=== PATIENT | female | born 1960 | race Caucasian/White ===

== ENCOUNTER → 2020-04-30 12:42 | Outpatient (BNVA) | payer MEDICAID, SELFPAY | PROVIDERS: PCP Internal Medicine; Referring Provider Internal Medicine; Visit Provider Nurse Practitioner Family | DX: Z01.818 Encounter for other preprocedural examination (principal); R53.83 Other fatigue; R00.2 Palpitations; Z98.0 Intestinal bypass and anastomosis status | CPT/HCPCS: 99204 ==

== ENCOUNTER 2020-09-07 17:31 | Emergency (ER) | payer MEDICAID, SELFPAY ==
--- NOTE | ~2020-09-07 | CT_ITS ---
EXAMINATION: CT FACIAL BONES WITHOUT CONTRAST CLINICAL INFORMATION: Pain. Swelling at the TMJ joint. Concern for dislocation. COMPARISON: None TECHNIQUE: Axial images obtained through the facial bones. Coronal and sagittal reformatted images are performed at CT scanner This CT examination was performed using dose optimization techniques as appropriate, variously including the following: *Automated exposure control *Adjustment of mA and/or kV according to patient size (this includes techniques or standardized protocols for targeted exams where dose is matched to indication/reason for exam; i.e. extremities or head) *Use of iterative reconstruction technique DLP: 287 mGy-cm FINDINGS: There is no acute maxillofacial fracture. The pterygoid plates are intact. The zygomatic arches are intact. The lamina papyracea are intact. The orbital rims are intact. The orbital globes and retrobulbar structures are normal. Lobular mucosal thickening in the inferior right and left maxillary sinus. Scattered mucosal thickening in the ethmoid sinuses. Lobular mucosal thickening in the posterior right sphenoid sinus. The mastoid air cells and middle ear cavities are normally aerated. No fracture or dislocation of the TMJ joints. There is mild degenerative change of the articular surface of the left mandibular condyle at the left TMJ joint with flattening of the articular surface. The right TMJ joint is normal. The imaged portions of the brain demonstrate no acute abnormality. CT/CT facial bones wo con IMPRESSION: No acute intracranial process or discrete facial bone fracture. Degenerative change of the articular condyle the left mandible at the TMJ joint.
[2020-09-07 17:58] VITALS: BP 120/66; BP 126/70; PULSE 92; RESP 18; TEMP 37.3; O2SAT 98; O2SAT 99; BMI 22.4
--- NOTE | 2020-09-07 21:13 | ED.DENTAL ---
HPI - Dental/Oral General Chief complaint: Dental/Oral Stated complaint: JAW PAIN AND SWELLING Time Seen by Provider: 09/07/20 21:13 Source: patient Mode of arrival: ambulatory History of Present Illness HPI Narrative: Three episodes of left-sided jaw pain over the past 2 and half weeks the patient has not sought medical attention for. This is not been associated with dizziness, visual disturbances, fevers, chills but patient states that she has difficulty opening her jaw because of the pain. First episode she stated lasted 20-25 minutes and occurred after awakening from sleep and was preceded by overall chest discomfort bilateral upper extremity discomfort as well as pain into bilateral aspects of her neck. Second episode occurred in the afternoon while she was drinking water and lasted ?a little bit longer?. This most recent episode started at 4:30 p.m. and is less painful not associated with any shortness of breath or chest pain but patient reports headache, denies ear pain or dental pain. Related Data Home Medications Medication Instructions Recorded Confirmed aloe vera 1 cap PO DAILY 04/27/20 06/15/20 ascorbic acid (vitamin C) [Vitamin 2,000 mg PO DAILY 04/27/20 06/15/20 C] [id number]-dtc-blkbor-om 3,6,9 5 1 cap PO DAILY 04/27/20 06/15/20 [[place] 3-6-9 Fatty Acids] multivitamin [Vitamin Daily] 5 ml PO DAILY 04/27/20 06/15/20 selenium (sodium selenate) 95 mcg PO DAILY 04/27/20 06/15/20 vitamin A 5,000 unit PO DAILY 04/27/20 06/15/20 vitamin E 400 unit PO DAILY 04/27/20 06/15/20 zinc gluconate [Zinc Natural] 100 mg PO DAILY 04/27/20 06/15/20 Previous Rx's Medication Instructions Recorded methylcellulose (laxative) 500 mg 500 mg PO DAILY #30 tab 04/30/20 tablet peg 3350-electrolytes 227.1 240 ml PO Q10M #1 ea 04/30/20 gram-21.5 gram-6.36gram oral powder packet Allergies Allergy/AdvReac Type Severity Reaction Status Date / Time codeine [CODEINE] Allergy Unknown UNKNOWN Verified 09/07/20 17:58 Penicillins [PENICILLINS] Allergy Unknown UNKNOWN Verified 09/07/20 17:58 morphine Allergy Hallucinati Verified 03/01/21 17:58 ons Review of Systems Review of Systems: Pertinent positives and negatives as stated in HPI 10 point review of systems is otherwise negative. [facility] Past Medical History Source: nursing notes reviewed Medical History Asthma Fibromyalgia GERD (gastroesophageal reflux disease) History of ovarian cyst Non Hodgkin's lymphoma Prediabetes Rheumatoid arthritis Rheumatoid arthritis in remission Screen for colon cancer Stomach cancer Surgical History H/O spinal fusion History of colon resection History of esophagogastroduodenoscopy (EGD) Status post cholecystectomy Family History Family History Father Family hx of lung cancer Mother No problems noted. Brother No problems noted. Sister History of colon cancer Daughter No problems noted. Other HTN (hypertension) Social History Social History Household Members: Friend(s) Housing: House Alcohol intake: never Smoking Status: Never smoker Advance Directives: No Advance Directives Information Provided: Yes service: No Current occupational status: disabled Physical Exam Vital Signs: Vital Signs: Last Vital Signs Temp 99.1 F 09/07/20 17:58 Pulse 92 09/07/20 17:58 Resp 18 09/07/20 17:58 BP 120/66 09/07/20 17:58 Pulse Ox 99 09/07/20 17:58 Body Mass Index 22.4 VITAL SIGNS: Reviewed. GENERAL: Well developed, well nourished, in no acute distress. HEAD: Normocephalic/atraumatic, no pain on palpation over the left temporal area, there is noted mild swelling over the left TMJ without erythema/warmth, and due to inability to open jaw exam limited EYES: PERRLA, EOMI intact without pain, no nystagmus/pallor/icterus noted EARS: Ext canals without abnormality NOSE: Nares patent bilateral OROPHARYNX: no oral lesions noted, posterior pharynx clear, limited exam due to patient's inability to open her mouth significantly NECK: Supple, no adenopathy LUNGS: Normal breath sounds. No adventitious sounds or accessory muscle use. SpO2<99> CARDIOVASCULAR: Regular rate and rhythm without noted murmurs ABDOMEN: Soft, non-tender, non-distended with bowel sounds. SKIN: Inspection of the skin reveals no rashes NEUROLOGIC: Alert and oriented x 4. Course Course Course Narrative: This is a 60-year-old female with history and clinical presentation most suggestive of either TMJ, grinding her teeth, but doubt dental pain and will rule out the likelihood giant cell arteritis as well as possible transient dislocation. Does not seem to be consistent with sialadenitis. Review of all investigations negative for acute findings and ESR -53 inconsistent with a giant cell arteritis. CT scan demonstrates degenerative changes of the articular condyle. All results and findings were discussed with patient at bedside and she was discharged in stable condition with instructions to follow-up with her primary care provider. MDM - Dental/Oral Lab Data Result diagrams: 09/07/20 21:49 09/07/20 21:49 Labs: Lab Results 09/07/20 09/07/20 09/07/20 Range/Units 21:49 21:49 21:49 WBC 7.8 (4.8-10.8) X10*3/uL RBC 4.87 (4.20-5.50) X10*6/uL Hgb 12.3 (12.0-16.0) g/dl Hct 40.1 (37-47) % MCV 82.3 (80-98) fL MCH 25.3 L (27.0-33.0) pg MCHC 30.7 L (31.0-35.0) g/dl RDW 14.2 (11.0-16.0) % Plt Count 269 (160-400) X10*3/uL MPV 10.2 (9.4-12.3) fL Immature Gran % (Auto) 0.4 (0.0-0.4) % Neut % (Auto) 69.4 (45-73) % Lymph % (Auto) 22.2 (20-40) % Pike % (Auto) 5.9 (2-11) % Eos % (Auto) 1.7 (0-4) % Baso % (Auto) 0.4 (0-2) % Lymph # (Auto) 1.7 (1.2-4.9) X10*3/uL Pike # (Auto) 0.5 (0.1-1.2) X10*3/uL Eos # (Auto) 0.1 (0.0-0.4) X10*3/uL Baso # (Auto) 0.0 (0.0-0.2) X10*3/uL Abs Immat Gran (auto) 0.03 (0.00-0.03) X10*3/uL Absolute Neuts (auto) 5.4 (2.0-8.3) X10*3/uL Absolute Nucleated RBC 0.000 (0.0-0.012) X10*3/uL Nucleated RBC % (auto) 0.0 (0.0-0.2) /100WBC ESR 53 H (0-20) MM/HR Sodium 141 (135-145) mmol/L Potassium 4.1 (3.3-5.1) mmol/L Chloride 104 (96-108) mmol/L Carbon Dioxide 28 (22-29) mmol/L Anion Gap 13 (12-20) BUN 7 L (9-16) mg/dL Creatinine 0.96 (0.5-1.4) mg/dL Estim Creat Clear Calc 57.5 Estimated GFR 60 Random Glucose 136 H (60-115) mg/dL Calcium 9.6 (8.4-10.2) mg/dL Total Bilirubin 0.5 (0.0-1.0) mg/dL AST 57 H (5-31) U/L ALT 45 H (0-31) U/L Alkaline Phosphatase 119 H (39-117) U/L Total Protein 7.7 (6.5-8.0) g/dL Albumin 4.3 (3.5-5.0) g/dL ECG Data Attestation: I personally reviewed and interpreted this ECG as follows: Prior ECG tracings: available for review (10/30/2018 no acute changes on comparison) Interpretation: Sinus rhythm, HR-72, no evidence of acute ischemia, SD/QRS/QTC are within normal limits. Discharge Plan Discharge Clinical Impression: Jaw pain Patient Disposition: Home, Self-Care Instructions: Temporomandibular Disorder (ED) Additional Instructions: Resume all home medications as prescribed. Recommend using [id number] Tylenol/ibuprofen as needed for pain control as per packaging guidelines. Please follow-up with your primary care provider by calling 1st thing in the morning. Do not hesitate to return to the emergency department should you experience any acute worsening of your symptoms. Prescriptions: No Action Vitamin Daily Liquid 5 ml PO DAILY RF: 0 zinc gluconate [Zinc Natural] 100 mg Tablet 100 mg PO DAILY RF: 0 Vitamin C 2,000 mg Tablet Extended Release 2,000 mg PO DAILY RF: 0 aloe vera Capsule 1 cap PO DAILY RF: 0 vitamin E 400 unit Capsule 400 unit PO DAILY RF: 0 vitamin A 5,000 unit/0.1 mL Drops 5,000 unit PO DAILY RF: 0 [place] 3-6-9 Fatty Acids 400-400-200 mg Capsule 1 cap PO DAILY RF: 0 selenium (sodium selenate) 95 mcg/drop Drops 95 mcg PO DAILY RF: 0 Citrucel 500 mg tablet 500 mg PO DAILY Qty: 30 RF: 2 Golytely 227.1-21.5-6.36 gram powder in packet 240 ml PO Q10M Qty: 1 RF: 0 Referrals: [facility] [Primary Care Provider] - 2 days (Re-evaluation of left jaw pain and CT scan findings showing degenerative changes of the articular condyle of the left mandible) Win Lazcano MD [Physician] - 2 days (Re-evaluation after presenting to the emergency department for jaw pain and ESR-53 not consistent with giant cell arteritis, and CT scan showing degenerative changes of the articular condyle the left mandible.)
--- NOTE | 2020-09-07 21:37 | ECG_ITS ---
Test Reason : Baseline Blood Pressure : / mmHG Vent. Rate : 072 BPM Atrial Rate : 072 BPM P-R Int : 154 ms QRS Dur : 072 ms QT Int : 362 ms P-R-T Axes : 079 062 050 degrees QTc Int : 396 ms Normal sinus rhythm Normal ECG When compared with ECG of 30-OCT-2018 12:23, No significant change was found Referred By: Trinh Jerez Electronically Signed By:ADELITA CEE
[2020-09-07 21:55] LABS: MANUAL DIFF FLAG NO
[2020-09-07 21:59] LABS: Basophils Percent Auto 0.4 % (0-2); Eosinophils Absolute Auto 0.1 X10*3/uL (0.0-0.4); Eosinophils Percent Auto 1.7 % (0-4); Hematocrit 40.1 % (37-47); Hemoglobin 12.3 g/dl (12.0-16.0); Imm Gran Abs Auto 0.03 X10*3/uL (0.00-0.03); Imm Gran Pct Auto 0.4 % (0.0-0.4); Lymphocytes Absolute Auto 1.7 X10*3/uL (1.2-4.9); Lymphocytes Percent Auto 22.2 % (20-40); Mean Corpuscular HGB Conc 30.7 g/dl (31.0-35.0); Mean Corpuscular Hemoglobin 25.3 pg (27.0-33.0); Mean Corpuscular Volume 82.3 fL (80-98); Mean Platelet Volume 10.2 fL (9.4-12.3); Monocytes Absolute Auto 0.5 X10*3/uL (0.1-1.2); Monocytes Percent Auto 5.9 % (2-11); Neutrophils Absolute Auto 5.4 X10*3/uL (2.0-8.3); Neutrophils Percent Auto 69.4 % (45-73); Platelet Count 269 X10*3/uL (160-400); Red Blood Count 4.87 X10*6/uL (4.20-5.50); Red Cell Distribution Width 14.2 % (11.0-16.0); White Blood Count 7.8 X10*3/uL (4.8-10.8)
[2020-09-07 22:21] LABS: Anion Gap 13 (12-20); Aspartate Amino Transferase 57 U/L (5-31); Bilirubin Total 0.5 mg/dL (0.0-1.0); Calcium 9.6 mg/dL (8.4-10.2); Carbon Dioxide 28 mmol/L (22-29); Chloride 104 mmol/L (96-108); Potassium 4.1 mmol/L (3.3-5.1); Sodium 141 mmol/L (135-145); Total Protein 7.7 g/dL (6.5-8.0)
[2020-09-07 22:33] LABS: Alanine Aminotransferase 45 U/L (0-31); Albumin Level 4.3 g/dL (3.5-5.0); Alkaline Phosphatase 119 U/L (39-117); Blood Urea Nitrogen 7 mg/dL (9-16); Creatinine Clr Calc Pharmacy 57.5; Estimated Glomerular Filt Rate 60; Glucose Random 136 mg/dL (60-115)
[2020-09-07 22:46] LABS: Erythrocyte Sedimentation Rate 53 MM/HR (0-20)
[2020-09-08] MEDS: Acetaminophen 325 MG TABLET 975 MG PO (00:05)
== END 2020-09-08 00:12 | disposition home or self-care (01) ==
PROVIDERS: Emergency Provider Student in an Organized Health Care Education/Training Program
DX: R68.84 Jaw pain (principal); J45.909 Unspecified asthma, uncomplicated; K21.9 Gastro-esophageal reflux disease without esophagitis; R73.03 Prediabetes; Z85.028 Personal history of other malignant neoplasm of stomach; Z90.49 Acquired absence of other specified parts of digestive tract
CPT/HCPCS: 36415; 70486; 80053; 85025; 85652; 93005; 99283; 99284

== ENCOUNTER → 2024-03-05 13:59 | Outpatient (RCR) | payer MEDICAID, SELFPAY ==
--- NOTE | 2020-04-27 13:19 | P.CNHO_ITS ---
Subjective - Subjective Chief complaint: consult for non-Hodgkin's lymphoma. 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 THERAPY: Status post resection of colon and small intestine and anastomosis. HPI - Consult Narrative Reason for consult: consult for non-Hodgkin's lymphoma. Narrative: Barbara Reyes is a pleasant 59 year old lady, who recently traveled to [place]. She tells me that in 2013 while she was in [place] she had some abdominal co mplaints, including sharp left upper quadrant. she had some nausea and constipation. Denied fever, chills or night sweats. No vomiting or urinary complaints. She was told that she has, a football sized mass behind the spleen, that was picked up on imaging studies. CT scan of abdomen pelvis 06/12/2013 showed a proximal small bowel tumor without evidence of obstruction. She underwent surgical resection: underwent resection of colon and small intestine, with anastomosis. Pathology came back positive for diffuse large B-cell lymphoma. She was seen by Dr. Hidalgo, from Oncology. who had extensive discussion with her and her daughter regarding further therapy. Chemotherapy was re commended however the patient rejected it. She was more interested in alternative treatments. She knows a cigar binder and so she followed her direction. she is actually following them even to this day. Lately she has felt more fatigued. She denies fever nor chills no night sweats. appetite is not that good. She says she has lost weight. She did notice some shortness of breath last week. She has noted some distension of the belly and it feels hard. She has been referred here for further evaluation. Review of Systems - Constitutional Reports system reviewed and no additional complaints, except as documented, Reports anorexia, Reports fatigue, Reports lack of energy, Reports weight loss, Denies fever(s) - Eyes Reports system reviewed and no additional complaints, except as documented - Cardiovascular Reports system reviewed and no additional complaints, except as documented - Respiratory Reports no additional respiratory complaints, Reports dyspnea on exertion, Denies chest congestion - Gastrointestinal Reports system reviewed and no additional complaints, except as documented, Denies loose stools - Genitourinary Reports no additional female genitourinary complaints - Musculoskeletal Reports system reviewed and no additional complaints, except as documented, Reports body aches, Reports joint pain - Integumentary/Breasts Skin/Breast: Reports no additional skin complaints - Psychiatric Reports system reviewed and no additional complaints, except as documented - Endocrine Reports no additional endocrine complaints - Hematologic/Lymphatic Reports system reviewed and no additional complaints, except as documented, Denies easy bleeding - Allergic/Immunologic Reports system reviewed and no additional complaints, except as documented [facility] Medical History: Medical History (Last Updated 04/27/20 @ 13:31 by Dandre Xavier MD) Asthma Fibromyalgia GERD (gastroesophageal reflux disease) History of ovarian cyst Non Hodgkin's lymphoma Prediabetes Rheumatoid arthritis Rheumatoid arthritis in remission Stomach cancer Patient : No Family History: Family History (Last Updated 04/27/20 @ 13:32 by Dandre Xavier MD) Other Family hx of lung cancer HTN (hypertension) Surgical History: Surgical History (Last Updated 04/27/20 @ 13:31 by Dandre Xavier MD) H/O spinal fusion Status post cholecystectomy Smoking status: Never smoker Home Medications and Allergies Home Medications Medication Instructions Recorded Confirmed Type aloe vera 1 cap PO DAILY 04/27/20 04/30/20 History ascorbic acid (vitamin C) [Vitamin 2,000 mg PO DAILY 04/27/20 04/30/20 History C] [id number]-[id number] 3,6,9 5 1 cap PO DAILY 04/27/20 04/30/20 History [[place] 3-6-9 Fatty Acids] multivitamin [Vitamin Daily] 5 ml PO DAILY 04/27/20 04/30/20 History selenium (sodium selenate) 95 mcg PO DAILY 04/27/20 04/30/20 History vitamin A 5,000 unit PO DAILY 04/27/20 04/30/20 History vitamin E 400 unit PO DAILY 04/27/20 04/30/20 History zinc gluconate [Zinc Natural] 100 mg PO DAILY 04/27/20 04/30/20 History Allergies Allergy/AdvReac Type Severity Reaction Status Date / Time codeine [CODEINE] Allergy Unknown UNKNOWN Verified 04/27/20 14:08 Penicillins [PENICILLINS] Allergy Unknown UNKNOWN Verified 04/27/20 14:08 morphine Allergy Hallucinati Verified 04/30/20 12:48 ons Physical Exam - Constitutional Present: no acute distress - Routine HEENT Exam Head: Present: normal inspection ENT: Present: mucous membranes moist - Routine Neck Exam Present: supple, full ROM - Routine Chest/Breast/Axilla Exam Breast: Present: Normal Exam - Routine Respiratory Exam Present: CTAB - Routine Cardiovascular Exam Cardiovascular: Present: RRR, S1 - Routine Abdominal Exam Present: distended, firm, soft, nontender - Routine Extremities Exam Present: normal inspection, nontender - Routine Back/Spine/Pelvis Exam Back/Spine: Present: full ROM - Routine Skin Exam Present: intact - Routine Neurological Exam Present: alert, oriented X3 - Detailed Neurological Exam: Coma Scale Eye Opening: Spontaneous (4) Motor Response: Obeys commands (6) - Routine Psychiatric Exam Present: good insight, good judgment Hem/Onc Consult Result - Labs CBC & Chem 7: 04/27/20 14:40 04/27/20 14:40 Assessment and Plan (1) NHL (non-Hodgkin's lymphoma) Status: Acute This is a pleasant 59-year-old lady who has been referred here for the history of non-Hodgkin's lymphoma. She tells me that this was diagnosed in [place] back in 2012. She had diffuse large B cell lymphoma involving the bowel. She mentions a hospital: [facility] in [place]. She has the phone number: [phone]. I wanted to review those records. I called the number and the answering machine gave me a fax number to fax the release of information. We did that. I got the records from there: CT scan of abdomen pelvis 06/12/2013 showed a proximal small bowel tumor without evidence of obstruction. She underwent surgical resection: underwent resection of colon and small intestine, with anastomosis. Pathology came back positive for diffuse large B-cell lymphoma. She was seen by Dr. Hidalgo, from Oncology. who had extensive discussion with her and her daughter regarding further therapy. Chemotherapy was recommended however the patient rejected it. She was more interested in alternative treatments. She knows a cigar binder and so she followed her direction. she is actually following them even to this day. PLAN: In the meantime I obtained baseline labs including an LDH. Will proceed with a cat scan of abdomen and pelvis, for further evaluation. She also mentions a family history of colon cancer. Her sister developed it at the age of 55. she at the age of 60. I will refer her for colon cancer screening. She will return in a month for a follow-up visit. thank you. cc: Dr. Lazcano. Yadira Bradshaw.
[2020-04-27 13:21] VITALS: BP 120/55; PULSE 75; RESP 18; TEMP 36.3; O2SAT 99
[2020-04-27 13:24] VITALS: BMI 26.5
[2020-04-27 15:18] LABS: Basophils Absolute Auto 0.1 X10*3/uL (0.0-0.2); Basophils Percent Auto 1.4 % (0-2); Eosinophils Absolute Auto 0.1 X10*3/uL (0.0-0.4); Eosinophils Percent Auto 2.7 % (0-4); Hematocrit 41.1 % (37-47); Hemoglobin 12.7 g/dl (12.0-16.0); Imm Gran Abs Auto 0.01 X10*3/uL (0.00-0.03); Imm Gran Pct Auto 0.2 % (0.0-0.4); Lymphocytes Absolute Auto 1.3 X10*3/uL (1.2-4.9); Lymphocytes Percent Auto 26.9 % (20-40); MANUAL DIFF FLAG NO; Mean Corpuscular HGB Conc 30.9 g/dl (31.0-35.0); Mean Corpuscular Hemoglobin 26.1 pg (27.0-33.0); Mean Corpuscular Volume 84.6 fL (80-98); Mean Platelet Volume 11.2 fL (9.4-12.3); Monocytes Absolute Auto 0.3 X10*3/uL (0.1-1.2); Monocytes Percent Auto 5.6 % (2-11); Neutrophils Absolute Auto 3.1 X10*3/uL (2.0-8.3); Neutrophils Percent Auto 63.2 % (45-73); Platelet Count 237 X10*3/uL (160-400); Red Blood Count 4.86 X10*6/uL (4.20-5.50); White Blood Count 4.8 X10*3/uL (4.8-10.8)
--- NOTE | 2020-04-27 15:31 | MHC.HEMONC ---
Patient here today for consultation. Has history of lymphoma and was treated in [place]. Labs were drawn. Pt referred to Dr. Graf' office upstairs. Scheduled for 04/29 for televisit, referral info given to Meri to obtain referral number.
[2020-04-27 15:48] LABS: Alanine Aminotransferase 18 U/L (0-31); Albumin Level 4.4 g/dL (3.5-5.0); Alkaline Phosphatase 113 U/L (39-117); Anion Gap 12 (12-20); Aspartate Amino Transferase 24 U/L (5-31); Blood Urea Nitrogen 11 mg/dL (9-16); Calcium 9.6 mg/dL (8.4-10.2); Carbon Dioxide 26 mmol/L (22-29); Chloride 107 mmol/L (96-108); Creatinine Clr Calc Pharmacy 57.8; Estimated Glomerular Filt Rate > 60; Glucose Random 102 mg/dL (60-115); Lactate Dehydrogenase 160 U/L (122-220); Potassium 4.4 mmol/l (3.3-5.1); Sodium 141 mmol/L (135-145); Total Protein 7.5 g/dL (6.5-8.0)
[2020-04-27 15:56] LABS: Bilirubin Total 0.3 mg/dL (0.0-1.0)
[2020-04-27 16:15] LABS: Erythrocyte Sedimentation Rate 10 MM/HR (0-20)
== END | disposition home or self-care (01) ==
LOC: HO.ONC 04-27 13:12
PROVIDERS: PCP Internal Medicine; Referring Provider Internal Medicine; Visit Provider Internal Medicine Medical Oncology
DX: C83.39 Diffuse large B-cell lymphoma, extranodal and solid organ sites (principal); Z80.0 Family history of malignant neoplasm of digestive organs
CPT/HCPCS: 36415; 80053; 83615; 85025; 85652; 99204